=== PATIENT | male | born 1980 | race Caucasian/White ===

== ENCOUNTER 2021-05-05 09:35 | Observation (INO) | payer OTHER ==
[2021-05-05] MEDS ORDERED: NITROGLYCERIN OINT 1 INCH/GM PACKET TOPICAL STA (10:13)
[2021-05-05] MEDS ORDERED: ASPIRIN 81 MG PO STA (10:13)
--- NOTE | 2021-05-05 10:18 | ED ---
General Adult HPI - General Chief complaint: Chest Pain Stated complaint: Chest Pain Time Seen by Provider: 05/05/21 09:57 Source: patient, RN notes reviewed Mode of arrival: ambulatory Limitations: no limitations - History of Present Illness Initial comments: Patient is a pleasant 40-year-old male presenting to the emergency Department with complaints of chest discomfort. Onset of symptoms was a couple of hours ago this morning. Patient has mild tightness and pressure left chest. No exacerbating symptoms. Patient had sweaty palms and mild nausea earlier. Patient feels slightly short of breath. No leg pain or leg swelling. Patient did have somewhat similar symptoms around a year ago however was not evaluated time. Patient does have a strong family history of cardiac disease. - Related Data Home Medications Medication Instructions Recorded Confirmed No Known Home Medications 05/05/21 05/05/21 Allergies Allergy/AdvReac Type Severity Reaction Status Date / Time No Known Allergies Allergy Verified 05/05/21 10:54 Review of Systems ROS Statement: Those systems with pertinent positive or pertinent negative responses have been documented in the HPI. ROS Other: All systems not noted in ROS Statement are negative. Constitutional: Denies: fever Eyes: Denies: eye pain ENT: Denies: ear pain Respiratory: Reports: dyspnea. Denies: cough Cardiovascular: Reports: as per HPI, chest pain Endocrine: Denies: fatigue Gastrointestinal: Reports: nausea. Denies: abdominal pain Genitourinary: Denies: dysuria Musculoskeletal: Denies: back pain Skin: Denies: rash Neurological: Denies: weakness Past Medical History Past Medical History: No Reported History History of Any Multi-Drug Resistant Organisms: None Reported Additional Past Surgical History / Comment(s): L hand Past Psychological History: No Psychological Hx Reported Smoking Status: Current every day smoker Past Alcohol Use History: Occasional Past Drug Use History: Marijuana General Exam Limitations: no limitations General appearance: alert, in no apparent distress Head exam: Present: normocephalic Eye exam: Present: normal appearance Respiratory exam: Present: normal lung sounds bilaterally. Absent: chest wall tenderness Cardiovascular Exam: Present: regular rate, normal rhythm, normal heart sounds Expanded Peripheral pulses: 2+: Radial (R), Radial (L), Dorsalis Pedis (R), Dorsalis Pedis (L) GI/Abdominal exam: Present: soft. Absent: tenderness Extremities exam: Present: normal inspection. Absent: pedal edema, calf tenderness Neurological exam: Present: alert Psychiatric exam: Present: normal affect, normal mood Skin exam: Present: normal color Course Vital Signs 05/05/21 05/05/21 09:40 12:59 Temperature 98 F Pulse Rate 74 65 Respiratory 18 18 Rate Blood Pressure 139/92 94/65 O2 Sat by Pulse 99 95 Oximetry EKG Findings - EKG Comments: EKG Findings:: Sinus rhythm with rate of 64. MO 180. QRS 88. QT 394. QTC 406. Normal axis. Normal QRS. No acute ST change. Medical Decision Making - Medical Decision Making Patient reevaluated and resting comfortably in bed. Symptoms have improved with nitroglycerin. Patient and family updated on results and plan. Case discussed with Dr. andre, who will admit covering hospital call. - Lab Data Result diagrams: 05/05/21 10:15 05/05/21 10:15 Lab Results 05/05/21 05/05/21 05/05/21 Range/Units 10:15 10:15 10:15 WBC 9.0 (3.8-10.6) k/uL RBC 5.03 (4.30-5.90) m/uL Hgb 16.2 (13.0-17.5) gm/dL Hct 46.6 (39.0-53.0) % MCV 92.7 (80.0-100.0) fL MCH 32.2 (25.0-35.0) pg MCHC 34.8 (31.0-37.0) g/dL RDW 12.4 (11.5-15.5) % Plt Count 324 (150-450) k/uL MPV 7.0 Neutrophils % 76 % Lymphocytes % 15 % Monocytes % 6 % Eosinophils % 1 % Basophils % 0 % Neutrophils # 6.9 (1.3-7.7) k/uL Lymphocytes # 1.3 (1.0-4.8) k/uL Monocytes # 0.5 (0-1.0) k/uL Eosinophils # 0.1 (0-0.7) k/uL Basophils # 0.0 (0-0.2) k/uL PT 10.3 (9.0-12.0) sec INR 1.0 (<1.2) APTT 25.3 (22.0-30.0) sec D-Dimer 0.23 (<0.60) mg/L FEU Sodium 137 (137-145) mmol/L Potassium 4.2 (3.5-5.1) mmol/L Chloride 105 (98-107) mmol/L Carbon Dioxide 21 L (22-30) mmol/L Anion Gap 11 mmol/L BUN 22 H (9-20) mg/dL Creatinine 0.89 (0.66-1.25) mg/dL Est GFR (CKD-EPI)AfAm >90 (>60 ml/min/1.73 sqM) Est GFR (CKD-EPI)NonAf >90 (>60 ml/min/1.73 sqM) Glucose 147 H (74-99) mg/dL Calcium 10.0 (8.4-10.2) mg/dL Magnesium 1.8 (1.6-2.3) mg/dL Total Bilirubin 0.7 (0.2-1.3) mg/dL AST 25 (17-59) U/L ALT 20 (4-49) U/L Alkaline Phosphatase 80 (38-126) U/L Troponin I (0.000-0.034) ng/mL NT-Pro-B Natriuret Pep pg/mL Total Protein 7.1 (6.3-8.2) g/dL Albumin 4.7 (3.5-5.0) g/dL Amylase 60 (30-110) U/L Lipase 38 (23-300) U/L 05/05/21 05/05/21 Range/Units 10:15 10:15 WBC (3.8-10.6) k/uL RBC (4.30-5.90) m/uL Hgb (13.0-17.5) gm/dL Hct (39.0-53.0) % MCV (80.0-100.0) fL MCH (25.0-35.0) pg MCHC (31.0-37.0) g/dL RDW (11.5-15.5) % Plt Count (150-450) k/uL MPV Neutrophils % % Lymphocytes % % Monocytes % % Eosinophils % % Basophils % % Neutrophils # (1.3-7.7) k/uL Lymphocytes # (1.0-4.8) k/uL Monocytes # (0-1.0) k/uL Eosinophils # (0-0.7) k/uL Basophils # (0-0.2) k/uL PT (9.0-12.0) sec INR (<1.2) APTT (22.0-30.0) sec D-Dimer (<0.60) mg/L FEU Sodium (137-145) mmol/L Potassium (3.5-5.1) mmol/L Chloride (98-107) mmol/L Carbon Dioxide (22-30) mmol/L Anion Gap mmol/L BUN (9-20) mg/dL Creatinine (0.66-1.25) mg/dL Est GFR (CKD-EPI)AfAm (>60 ml/min/1.73 sqM) Est GFR (CKD-EPI)NonAf (>60 ml/min/1.73 sqM) Glucose (74-99) mg/dL Calcium (8.4-10.2) mg/dL Magnesium (1.6-2.3) mg/dL Total Bilirubin (0.2-1.3) mg/dL AST (17-59) U/L ALT (4-49) U/L Alkaline Phosphatase (38-126) U/L Troponin I <0.012 (0.000-0.034) ng/mL NT-Pro-B Natriuret Pep 24 pg/mL Total Protein (6.3-8.2) g/dL Albumin (3.5-5.0) g/dL Amylase (30-110) U/L Lipase (23-300) U/L - Radiology Data Radiology results: image reviewed (Chest x-ray shows no acute process) Disposition Clinical Impression: Chest pain Disposition: ADMITTED IP TO THIS HOSP Is patient prescribed a controlled substance at d/c from ED?: No Referrals: None,Stated [Primary Care Provider] - 1-2 days Decision Time: 13:04
[2021-05-05 10:31] LABS: Basophils % (A) 0 %; Eosinophils # (A) 0.1 k/uL (0-0.7); Eosinophils % (A) 1 %; HCT 46.6 % (39.0-53.0); HGB 16.2 gm/dL (13.0-17.5); Lymphocytes # (A) 1.3 k/uL (1.0-4.8); Lymphocytes % (A) 15 %; MCH 32.2 pg (25.0-35.0); MCHC 34.8 g/dL (31.0-37.0); MCV 92.7 fL (80.0-100.0); Monocytes # (A) 0.5 k/uL (0-1.0); Monocytes % (A) 6 %; Neutrophils # (A) 6.9 k/uL (1.3-7.7); Neutrophils % (A) 76 %; Platelet Count 324 k/uL (150-450); RBC 5.03 m/uL (4.30-5.90); RDW 12.4 % (11.5-15.5)
[2021-05-05 10:45] LABS: Partial Thromboplastin Time 25.3 sec (22.0-30.0); Prothrombin Time 10.3 sec (9.0-12.0)
--- NOTE | 2021-05-05 10:47 | XR ---
EXAMINATION TYPE: XR chest 2V DATE OF EXAM: 05/05/2021 COMPARISON: NONE HISTORY: Chest pain when driving. TECHNIQUE: Frontal and lateral views of the chest are obtained. FINDINGS: Overlying EKG leads. There is no focal air space opacity, pleural effusion, or pneumothorax seen. The cardiac silhouette size is within normal limits. Spine is straightened on lateral images. IMPRESSION: No acute cardiopulmonary process.
[2021-05-05 10:57] LABS: ALT 20 U/L (4-49); AST 25 U/L (17-59); African American GFR (CKD) >90 (>60 ml/min/1.73 sqM); Albumin 4.7 g/dL (3.5-5.0); Alkaline Phosphatase 80 U/L (38-126); Amylase 60 U/L (30-110); Anion Gap 11 mmol/L; Blood Urea Nitrogen 22 mg/dL (9-20); Carbon Dioxide 21 mmol/L (22-30); Chloride 105 mmol/L (98-107); Glucose 147 mg/dL (74-99); Lipase 38 U/L (23-300); Magnesium 1.8 mg/dL (1.6-2.3); Non-African American GFR(CKD) >90 (>60 ml/min/1.73 sqM); Potassium 4.2 mmol/L (3.5-5.1); Sodium 137 mmol/L (137-145); Total Bilirubin 0.7 mg/dL (0.2-1.3); Total Protein 7.1 g/dL (6.3-8.2)
[2021-05-05] MEDS ORDERED: NITROGLYCERIN SL TABS 0.4 MG TAB SUBLINGUAL PRN (13:04)
--- NOTE | 2021-05-05 14:46 | P.HPIM ---
History of Present Illness H&P Date: 05/05/21 Chief Complaint: Chest pain This is a 40-year-old white male who reported to the hospital with chest pain. He describes the pain as substernal intermittent sharp with mild to moderate in severity. Symptoms started a few hours ago. He states that he had similar presentation about a year ago with an episode of syncope. He denies subjective fever or chills, no cough, no hematuria dysuria hematemesis or hematochezia. At the time of examination patient's chest pain has resolved, he is in bed, does not appear to be in distress, his is at bedside. Review of Systems 10 systems reviewed, pertinent positive and negative findings as in HPI. No abdominal pain, no fever. Past Medical History Past Medical History: No Reported History History of Any Multi-Drug Resistant Organisms: None Reported Additional Past Surgical History / Comment(s): L hand Past Psychological History: No Psychological Hx Reported Smoking Status: Current every day smoker Past Alcohol Use History: Occasional Past Drug Use History: Marijuana Medications and Allergies Home Medications Medication Instructions Recorded Confirmed Type No Known Home Medications 05/05/21 05/05/21 History Allergies Allergy/AdvReac Type Severity Reaction Status Date / Time No Known Allergies Allergy Verified 05/05/21 10:54 Physical Exam Vitals: Vital Signs Temp Pulse Resp BP Pulse Ox 05/05/21 12:59 65 18 94/65 95 05/05/21 09:40 98 F 74 18 139/92 99 Intake and Output 05/04/21 05/05/21 05/05/21 22:59 06:59 14:59 Other: Weight 77.111 kg Constitutional: No acute distress, conversant, pleasant Eyes: Anicteric sclerae, moist conjunctiva, no lid-lag, PERRLA ENMT: NC/AT,Oropharynx clear, no erythema, exudates Neck:Supple, FROM, no masses, or JVD, No carotid bruits Lungs: Clear to auscultation, Clear to percussion, Normal respiratory effort, no accessory muscle use Cardiovascular: Heart regular in rate and rhythm, No murmurs, gallops, or rubs no peripheral edema Abdominal: Soft Nontender, non distended, no guarding, no rebound or rigidity Skin: Normal temperature, tone, texture, turgor, No induration No subcutaneous nodules, No rash, lesions, No ulcers Extremities:No digital cyanosis No clubbing, Pedal pulses intact and symmetrical Radial pulses intact and symmetrical Normal gait and station, No calf tenderness Psychiatric: Alert and oriented to person, place and time, Appropriate affect Intact judgement Neuro: Muscles Strength 5/5 in all 4 extremities, Sensation to light touch grossly present throughout, Cranial nerves II-XII grossly intact. No focal sensory deficits Results CBC & Chem 7: 05/05/21 10:15 05/05/21 10:15 Labs: Abnormal Lab Results - Last 24 Hours (Table) 05/05/21 Range/Units 10:15 Carbon Dioxide 21 L (22-30) mmol/L BUN 22 H (9-20) mg/dL Glucose 147 H (74-99) mg/dL Assessment and Plan Plan: 1. Chest pain, unspecified etiology: Place on telemetry, continue to check car diac enzymes, negative d-dimer. Obtain 2-D echo. Possible stress test as an outpatient. 2. Tobacco abuse/dependence without withdrawal: Nicotine patch as indicated Observation DVT prophylaxis: SCDs Disposition: Home likely tomorrow if remains hemodynamically stable
[2021-05-05] MEDS: NITROGLYCERIN OINT 1 INCH/GM PACKET TOPICAL SCH ×2 (17:59→23:46)
[2021-05-06 02:38] VITALS: RESP 18
[2021-05-06] MEDS: NITROGLYCERIN OINT 1 INCH/GM PACKET TOPICAL SCH (05:51)
[2021-05-06] MEDS ORDERED: ASPIRIN 81 MG PO SCH (09:00)
[2021-05-06] MEDS ORDERED: ASPIRIN 325 MG TAB PO SCH (09:00)
[2021-05-06 09:29] LABS: Basophils % (A) 1 %; Eosinophils # (A) 0.2 k/uL (0-0.7); Eosinophils % (A) 3 %; HCT 46.1 % (39.0-53.0); HGB 16.8 gm/dL (13.0-17.5); Lymphocytes # (A) 1.6 k/uL (1.0-4.8); Lymphocytes % (A) 19 %; MCH 33.4 pg (25.0-35.0); MCHC 36.3 g/dL (31.0-37.0); MCV 91.9 fL (80.0-100.0); Mean Platelet Volume 7.4; Monocytes # (A) 0.6 k/uL (0-1.0); Monocytes % (A) 7 %; Neutrophils # (A) 5.9 k/uL (1.3-7.7); Neutrophils % (A) 69 %; Platelet Count 282 k/uL (150-450); RBC 5.02 m/uL (4.30-5.90); RDW 11.6 % (11.5-15.5); WBC 8.6 k/uL (3.8-10.6)
--- NOTE | 2021-05-06 09:43 | CONS ---
CONSULTATION Mr. Galeas is a 40-year-old male who does not follow with a primary care physician who presented to the emergency room with an episode of chest discomfort. The discomfort started while he was driving. Localized on the left side of the chest without any radiation, with mild dyspnea. He was concerned about the discomfort because of a recent cardiac event in a friend of his. He is usually active physically, has no exertional chest pain. His breathing is stable. He has no dizziness. No palpitation. He has no recent syncope. He had a remote episode of syncope. He has no PND, orthopnea or peripheral edema. His coronary risk factors are positive for smoking, but no history of hypertension, hyperlipidemia or diabetes. He medication: None at home. REVIEW OF SYSTEMS: RESPIRATORY SYSTEM: He had recent cough or fever or wheezing. GI SYSTEM: No recent GI bleeding. No peptic ulcer disease. SYSTEM: No dysuria or hematuria. NERVOUS SYSTEM: No stroke or seizure. PHYSICAL EXAMINATION: GENERAL APPEARANCE: He is a 40-year-old male, alert, oriented, in no apparent distress. VITAL SIGNS: Blood pressure 111/67 with a heart rate in 60s. HEAD: Normocephalic. Eyes: Sclerae anicteric. NECK: Good carotid upstroke. No bruit, no jugular venous distention. LUNGS: Clear to auscultation. HEART: Regular rate and rhythm. S1, S2. No S3. No S4. No murmur or rub. ABDOMEN: Soft, nontender. Positive bowel sounds. No organomegaly. EXTREMITIES: No edema. Intact distal pulses. LAB DATA: Lab data revealed troponin less than 0.012 for 3 samples. BUN and creatinine of 22 and 0.89, potassium 4.2, hemoglobin 16.2. EKG revealed a sinus mechanism, normal axis and intervals. No acute changes. His chest x-ray shows no acute infiltrate. IMPRESSION: 1. Chest discomfort with some atypical features of ischemic heart disease. No clear evidence to suggest ischemic etiology. 2. History of chronic tobacco use. RECOMMENDATIONS: I have recommended obtaining a stress echocardiogram. If there is no evidence of inducible ischemia, then no further cardiac workup will be needed. I have discussed with the patient the importance of smoking cessation. Thank you for this consult. Will follow with you. MMODL / IJN: [id number] /
[2021-05-06 10:00] LABS: ALT 18 U/L (4-49); AST 25 U/L (17-59); African American GFR (CKD) >90 (>60 ml/min/1.73 sqM); Albumin 4.6 g/dL (3.5-5.0); Alkaline Phosphatase 68 U/L (38-126); Anion Gap 10 mmol/L; Blood Urea Nitrogen 21 mg/dL (9-20); Calcium 10.1 mg/dL (8.4-10.2); Carbon Dioxide 23 mmol/L (22-30); Chloride 105 mmol/L (98-107); Glucose 119 mg/dL (74-99); Non-African American GFR(CKD) >90 (>60 ml/min/1.73 sqM); Potassium 4.5 mmol/L (3.5-5.1); Sodium 138 mmol/L (137-145); Total Bilirubin 0.9 mg/dL (0.2-1.3); Total Protein 7.2 g/dL (6.3-8.2)
[2021-05-06 10:51] VITALS: BP 110/75; PULSE 78; TEMP 98.2
--- NOTE | 2021-05-06 11:01 | ECHOF ---
Referral Reason:cp MEASUREMENTS -------- HEIGHT: 172.7 cm WEIGHT: 77.1 kg BP: RVIDd: 2.5 cm (< 3.3) IVSd: 0.8 cm (0.6 - 1.1) LVIDd: 4.2 cm (3.9 - 5.3) LVPWd: 1.2 cm (0.6 - 1.1) IVSs: 1.4 cm LVIDs: 2.9 cm LVPWs: 1.5 cm LAESV Index (A-L): 23.27 ml/m Ao Diam: 3.0 cm (2.0 - 3.7) AV Cusp: 1.9 cm (1.5 - 2.6) MV EXCURSION: 21.562 mm (> 18.000) MV EF SLOPE: 117 mm/s (70 - 150) EPSS: 0.3 cm MV E Darrick: 0.72 m/s MV DecT: 226 ms MV A Darrick: 0.64 m/s MV E/A Ratio: 1.13 RAP: 5.00 mmHg RVSP: 14.31 mmHg FINDINGS -------- Sinus rhythm. This was a technically good study. LV size, wall thickness and systolic function are normal, with an EF greater than 55%. The left sully tricular size is normal. The right ventricle is normal in size. Normal LA size by volume 22+/-6 ml/m2. The right atrial size is normal. The aortic valve is trileaflet, and appears structurally normal. No aortic stenosis or regurgitation. There is trace to mild mitral regurgitation. Mild tricuspid regurgitation present. Right ventricular systolic pressure is normal at < 35 mmHg. There is no pulmonic regurgitation present. There is no pericardial effusion. CONCLUSIONS -------- 1. LV size, wall thickness and systolic function are normal, with an EF greater than 55%. 2. The left ventricular size is normal. 3. The right ventricle is normal in size. 4. Normal LA size by volume 22+/-6 ml/m2. 5. The right atrial size is normal. 6. The aortic valve is trileaflet, and appears structurally normal. No aortic stenosis or regurgitati on. 7. There is trace to mild mitral regurgitation. 8. Mild tricuspid regurgitation present. 9. There is no pericardial effusion. [employer]IA SALES EXECUTIVE: Shey Hendricks RDCS
--- NOTE | 2021-05-06 12:53 | P.STRESS ---
- Stress Test Note Stress Test Results/Findings: Exam Performed: stress echo exercise Exam Date: 05/06/21 Reason for Exam: cp Height: 5 ft 8 in Weight: 77.111 kg Protocol: Marquis Stage: V Duration of Exercise: 13:20 Resting Heart Rate: 71 Resting Blood Pressure: 106/74 Maximum Achieved Heart Rate: 168 Maximum Achieved Blood Pressure: 145/73 85% PMHR: 154 100% PMHR: 181 METS: 13.7 Technologist Comment: Stress Test Results/Findings: Baseline heart rate 71 beats a minute, Baseline blood pressure 106/74 mmHg Baseline twelve-lead EKG showed sinus mechanism normal [place] narrow QRS normal ST segments Patient exercised on a Marquis protocol for 13 minutes and 20 seconds Achieving a peak heart rate of 168 beats a minute Normal blood pressure response Occasional PVCs at recovery There was no ECG evidence for ischemia At baseline, normal LV size and systolic function was noted, without any segmental wall motion abnormalities At peak exercise, there was excellent augmentation of overall LV contractility without development of any wall motion abnormalities At the recovery, regional and global LV systolic function remained normal Impression Normal exercise stress echo
--- NOTE | 2021-05-06 14:20 | P.DS ---
Providers Date of admission: 05/05/21 13:06 Attending physician: Pat Montano Consults: 05/05/21 13:04 Consult Physician Urgent Consulting Provider: Amadou Larkin Consult Reason/Comments: cp Do you want consulting provider notified?: Yes Primary care physician: Stated None Hospital Course: Patient is a 40-year-old male who does not follow with any primary care physician outpatient. He reported to the hospital with complaint of localized left-sided chest pain. Patient had no other associated symptoms. He was admitted to the hospital for cardiac workup. Patient had negative tropo nins, negative EKG findings for acute ischemia. He was evaluated by cardiology team in the hospital patient had a negative stress echo test performed. And was cleared for discharge home. Patient on day of discharge was not having any further complaints of chest pain pressure or discomfort he was not having any difficulty in breathing. Possible etiology of patient's chest discomfort was possibly pleuritic in nature. Patient is to follow-up with his primary care physician. Patient was also given instructions to follow up in the emergency room if he had any acute change in condition Discharge diagnosis #1 atypical chest pain likely pleuritic in nature Patient Condition at Discharge: Stable Plan - Discharge Summary New Discharge Prescriptions: Continue No Known Home Medications Discharge Medication List No Known Home Medications 05/05/21 [History] Follow up Appointment(s)/Referral(s): None,Stated [Primary Care Provider] - 1-2 days
[2021-05-06 21:38] LABS: Chol/HDL Ratio 3.78; Cholesterol 185 mg/dL (0-200); LDL Cholesterol,Calculated 111.8 mg/dL (0.0-131.0)
--- NOTE | 2021-05-10 15:25 | ECHOS ---
Stress Test Results/Findings: Exam Performed: stress echo exercise Exam Date: 05/06/21 Reason for Exam: cp Height: 5 ft 8 in Weight: 77.111 kg Protocol: Marquis Stage: V Duration of Exercise: 13:20 Resting Heart Rate: 71 Resting Blood Pressure: 106/74 Maximum Achieved Heart Rate: 168 Maximum Achieved Blood Pressure: 145/73 85% PMHR: 154 100% PMHR: 181 METS: 13.7 Technologist Comment: Stress Test Results/Findings: Baseline heart rate 71 beats a minute, Baseline blood pressure 106/74 mmHg Baseline twelve-lead EKG showed sinus mechanism normal [place] narrow QRS normal ST segments Patient exercised on a Marquis protocol for 13 minutes and 20 seconds Achieving a peak heart rate of 168 beats a minute Normal blood pressure response Occasional PVCs at recovery There was no ECG evidence for ischemia At baseline, normal LV size and systolic function was noted, without any segmental wall motion abnormalities At peak exercise, there was excellent augmentation of overall LV contractility without development of any wall motion abnormalities At the recovery, regional and global LV systolic function remained normal Impression Normal exercise stress echo MTDD
== END 2021-05-06 14:12 | disposition home or self-care (01) ==
LOC: EC 09:35 → 1SOBS 13:06 → 6NMEDSUR 14:23 → 3SCARD 15:57
PROVIDERS: ADMIT Internal Medicine; ATTEND Internal Medicine
DX: R07.2 Precordial pain (principal); R06.02 Shortness of breath; R11.0 Nausea; R07.89 Other chest pain; F17.200 Nicotine dependence, unspecified, uncomplicated; Z71.6 Tobacco abuse counseling; Z82.49 Family history of ischemic heart disease and other diseases of the circulatory system; I25.9 Chronic ischemic heart disease, unspecified
CPT/HCPCS: 99285; 36415; 94760; 93005; 93306; 93351; 85379; 83880; 80061; 80053 ×2; 82150; 83690; 83735; 84484; 85025 ×2; 85610; 85730; 71046; G0378 ×2